=== PATIENT | female | born 1970 | race Caucasian/White ===

== ENCOUNTER 2024-01-31 12:22 | Outpatient (CLI) | payer BC, SELFPAY ==
--- OUTSIDE RECORDS SUMMARY | 2024-02-18 09:07 | XMS_ITS | Clinical Summary ---
Author Organization [facility] Address [place], [place] [address] Care Team Providers Care Regional Sales Leader Name Role Phone Heidi Paulino Unavailable Gabriella Kapadia MD Primary Care Provide r Allergies Active Allergy Reactions Criticality Noted Date Comments Cephalexin Rash,*Unknown 11/11/2012 Levofloxacin Other - Describe In Comment Field 11/11/2012 Achilles tendon pain Nitrofurantoin Rash 03/21/2013 Nitrofurantoin Monohyd/M-Cryst Rash 10/05/2023 Sulfamethoxazole-Trimetho prim Rash,*Unknown 01/03/2012 Medications Medication Sig Dispensed Refills Start Date End Date Status melatonin 5 mg tab Take 3 mg by mouth at bedtime. 3mg tablet- 1/4 to 1/2 tablet 0 12/17/2014 Active cholecalciferol (Vitamin D-3) 2,000 unit capsule Take 2,000 units by mouth. Every 3-4 days 0 11/25/2022 Active Prometrium 100 mg capsule take 1 capsule PO nightly 06/11/2023 Active sertraline (ZOLOFT) 50 mg tabletIndications:A nxiety state Take 1.5 Tablets (75 mg) by mouth every morning. 135 Tablet 3 06/22/2023 Active clonazePAM (KLONOPIN) 0.5 mg tabletIndications:I nsomnia, unspecified type Take 1/2 to 1 tablet at bedtime 90 Tablet 06/22/2023 Active Additional Information Patient taking differently: Take 1/4 to 1/2 tablet at bedtime as needed, Reported on 12/13/2023 DOCOSAHEXAENOIC ACID ORAL Take 500 mg by mouth two times daily. Fish oil- few times a week Active propranoloL (INDERAL) 10 mg tablet Take 10 mg by mouth. Active estradiol 0.025 mg/24 hr (CLIMARA) 0.025 mg/24 hr patch Apply 1 Patch on dry, clean, hairless skin once weekly. 08/03/2023 Active metoprolol succinate (TOPROL XL) 25 mg Sustained-Release tabletIndications:N SVT (nonsustained ventricular tachycardia) (HC),Palpitations,M itral valve insufficiency, unspecified etiology Take 0.5 Tablets (12.5 mg) by mouth two times daily. 90 Tablet 1 11/21/2023 Active Additional Information Patient taking differently:12.5 mg OralDAILY, Reported on 12/13/2023 Active Problems Problem Noted Date Diagnosed Date Colon polyp 10/24/2023 Overview: Colonoscopy 09/2023 SSA, repeat in 5 years Female cystocele 09/17/2014 Thyroid nodule 03/10/2014 Overview: 2.5 cm.and stable. Benign FNA 2011. Follow up ultrasound every 2-5 years. 10/2016. Nontoxic single thyroid nodule 03/10/2014 Overview: 2.5 cm.and stable. Benign FNA 2011. Follow up ultrasound every 2-5 years. 10/2016. Insomnia 04/15/2013 Gilbert's syndrome 01/12/2013 Gall bladder polyp 01/09/2013 Overview: 3mm and stable. No further follow up ultrasounds needed. 10/2016. Cholesterolosis gallbladder 01/09/2013 Overview: 3mm and stable. No further follow up ultrasounds needed. 10/2016. Family history of colon cancer 12/19/2012 Overview: Colonoscopy 12/2017 hyperplastic polyp, repeat in 5 years Colonoscopy 09/2023 SSA, repeat in 5 years Anxiety state, unspecified 12/19/2012 Generalized anxiety disorder 12/19/2012 Pap smear for cervical cancer screening Overview: 07/2021 NIL. Plan: Pap/HPV due 07/2024 Resolved Problems Problem Noted Date Diagnosed Date Resolved Date Insomnia 06/22/2015 06/29/2015 Insomnia 06/22/2015 06/22/2015 Irregular menses 09/17/2014 06/29/2015 Mitral regurgitation 12/19/2012 013 Elevated bilirubin 12/19/2012 3 Environmental allergies 11/26/201211/26 Family history of malignant neoplasm of gastrointestinal tract 06/28/2012 12/19/2012 Overview: Colonoscopy 06/2012 normal repeat in 5 years Underweight 05/07/2012 12/19/2012 Mastitis 01/03/2012 05/07/2012 Rash 01/03/2012 05/07/2012 Syncope 01/03/2012 05/07/2012 Encounters Date Type Department Care Team Description 01/03/2024 9:20 AM CDT Orders Only [facility] [address] [place] [address] Lab, Appv Lab 01/03/2024 Travel 12/13/2023 9:00 AM CDT Office Visit [facility] [address] [facility] [address] [place] [id number] Joseph Newberry MBBS Consult (Osteoporosis/ Referred by Ely Yang MD) 12/13/2023 Travel 12/06/2023 3:30 PM CDT Office Visit [facility] [address] [place] [address] Jf Scott, Ashwin Hearing Problem 12/06/2023 Travel from Last 3 Months Immunizations Name Administration Dates Next Due AMB Influenza, IIV3 (Age >=3 years) Preserve Free (Flu Clinic Only) 07/07/2016 AMB Influenza, IIV4 PF (=>6 mos Flulaval,Fluzone Fluarix)(Flu Clinic Only) 06/23/2020,07/03/2018 COVID-19 VACCINE NOVAVAX 202 -2023 FORMULA 06/09/2023 COVID-19 vaccine (Moderna 100mcg/0.5mL) PF, MDV 09/21/2020,08/24/2020 COVID-19 vaccine (Pfizer-Bio NTech 30mcg/0.3mL) 12YO+ BIVALENT PF, MDV 06/02/2022 COVID-19 vaccine (Pfizer-Bio NTech 30mcg/0.3mL) 12YO+ FRANK-SUCROSE PF, MDV 03/10/2022 Influenza A (H1N1), Inactiva angel (Age >=3 Years) 06/13/2019 Influenza Virus, Unspecified 06/16/1998 Influenza, IIV4 07/10/2023, 2,06/01/2021,2018,06/20/2017,06/21/2015,05/27/2014 Tdap 05/12/2021,12/02/2010 Tuberculin (PPD) 03/29/2016,02/13/2012, 2 Zoster (Shingrix-RZV, recombinant) 08/12/2021 Family History Medical History Relation Name Comments Good Health Brother Cancer-colon Father Diabetes Father Heart Disease Father [place] Hyperlipidemia Father Hypertension Father Psychiatric illness Father anxiety Cancer-prostate Maternal Grandfather 70s Diabetes Maternal Grandfather Cancer Mother melanoma Hypertension Mother Cancer-breast No Family History Cancer-ovarian No Family History Relation Name Status Comments Brother Alive Child 1 Alive Child 2 Alive Father Alive Maternal Grandfather Mother Alive Social History Tobacco Use Types Packs/Day Years Used Date Smoking Tobacco: Never Passive Smoke Exposure: Never Smokeless Tobacco: Never Tobacco Cessation:Counseling Given: Yes Alcohol Use Standard Drinks/Week Comments Yes 3 (1 standard drink = 0.6 oz pur e alcohol) 3x a week PHQ-2 Answer Date Recorded PHQ-2 TOTAL SCORE 1 06/22/2023 Social Connections Answer Date Recorded Frequency of Communication with Friends and Fami ly 0 10/05/2023 Financial Resource Strain Answer Date R ecorded Difficulty of Paying Living Expenses 3 10/05/2023 Difficulty of Paying Living Expenses Not on file 10/05/2023 Food Insecurity Answer Date Recorded Worried About Running Out of Food in the Last Ye ar 1 10/05/2023 Transportation Needs Answer Date Record ed Lack of Transportation (Medical) 1 10/05/2023 Housing Stability Answer Date Recorded Unable to Pay for Housing in the Last Year 1 10/05/2023 Sex and Gender Information Value Date Recorded Sex Assigned at Not on file Gender Identity Not on file Sexual Orientation Not on file Obstetrics History Para Term AB IAB SAB Ectopic Multiple Livin g Live Births 2 2 2 0 0 0 0 0 0 2 Date Outcome GA Total Labor Labor/2nd/3rd Weight Sex Type Anes PTL Ojnna A1 A5 Name Clin 2006 Term 40w0 d 3.74 kg (8 lb 4 oz) M Vag Zan 2010 Term 41w0 d 3.83 kg (8 lb 7 oz) M Vag Ramirez Last Filed Vital Signs Vital Sign Reading Time Taken Comments Blood Pressure 116/64 12/13/2023 9:07 AM CDT Pulse 72 12/13/2023 9:07 AM CDT Temperature 36.8 ??C (98.2 ??F) 08/31/2023 7:51 AM CS T Respiratory Rate 14 10/23/2023 3:07 PM SECURITY INSTALLATION SALES TECHNICIAN Oxygen Saturation 100% 10/23/2023 3:07 PM SECURITY INSTALLATION SALES TECHNICIAN Inhaled Oxygen Concentration - - Weight 64 kg (141 lb 1.6 oz) 12/13/2023 9:07 AM CDT Height 162.9 cm (5' 4.13) 12/13/2023 9:07 AM CD T Body Mass Index 24.12 12/13/2023 9:07 AM CDT Plan of Treatment Upcoming Encounters Date Type Department Care Team (Late st Contact Info) Description 03/06/2024 9:55 AM CDT Office Visit [facility] [address] [place] [address] Gabriella Parsons MD [address] [place] [address] 07/03/2024 10:30 AM SECURITY INSTALLATION SALES TECHNICIAN Office Visit [facility] [address] [place] [address] Chris Jurado MD [address] [facility] [address] [place], [place] [phone] 08/13/2024 10:00 AM SECURITY INSTALLATION SALES TECHNICIAN Office Visit [facility] [address] [place] [phone] Joseph Newberry, AARTI [address] [place] [address] Health Maintenance Due Date Last Done Comments Hepatitis C screening for age 18-79 1988 Zoster (shingles) series for age 50+ (2 of 2) 10/07/2021 08/12/2021 Influenza for age 50-64 04/27/2024 07/10/20, 06/22/2022, 06/01/2021, Additional history exists Depression screening for age 12+ 06/22/2024 06/22/2023, 08/12/2021, 01/22/2020, Additional history exists Mammogram for age 45-75 07/30/2024 07/30/20, 07/28/2022, 08/15/2021, Additional history exists Pap test for age 21-65 08/12/2024 , 11/09/2017, 06/29/2015, Additional history exists BMI (ht and wt on same day) for age 18+ 12/12/2024 12/13/2023, 06/22/2023, 05/24/2023, Additional history exists Lipids for age 45-75 11/02/2027 11/01/2022, 08/12/2021, 01/07/2015 Colonoscopy through age 75 10/23/202810/23, 10/23/2023, 12/28/2017, Additional history exists Tetanus booster 05/12/2031 05/12/2021, 12/02/2010 HIV for age 15-65 Completed 06/06/2019 Tdap Completed 05/12/2021, 12/02/2010 COVID-19 vaccine series Completed 06/09/20, 06/02/2022, 03/10/2022, Additional history exists Pneumococcal series for age 6-64 Aged Out No longer eligible based on patient's age to complete this topic Procedures Procedure Name Priority Date/Time Associated Diagnosis Comments C TELOPEPTIDE SERUM Routine 01/03/2024 9 :19 AM CDT Osteoporosis, unspecified osteoporosis type, unspecified pathological fracture presence PROPEPTIDE TYPE I COLLAGEN Routine 01/03/2024 9:19 AM CDT Osteoporosis, unspecified osteoporosis type, unspecified pathological fracture presence PTH,INTACT Routine 12/13/2023 9:54 AM CDT Osteoporosis, unspecified osteoporosis type, unspecified pathological fracture presence Hypercalcemia COLONOSCOPY 10/23/2023 2:18 PM SECURITY INSTALLATION SALES TECHNICIAN XR MAMMO JOSE ANGEL BILAT SCREEN Routine 07/30/2023 4:34 PM SECURITY INSTALLATION SALES TECHNICIAN Visit for screening mammogram LC LIPID PANEL AND CHOL/HDL RATIO Routine 11/01/2022 9:00 AM SECURITY INSTALLATION SALES TECHNICIAN Lipid screening DAIRY FARM WORKER THIN PREP PAP SCREEN IMAGED Routine 08/12/2021 12:00 PM SECURITY INSTALLATION SALES TECHNICIAN Screening for malignant neoplasm of cervix ANTI HIV 1/2 Routine 06/06/2019 12:45 PM CDT Exposure to body fluids by contaminated hypodermic needle stick from Last 3 Months or Most Recently Relevant to Health Maintenance Results * C TELOPEPTIDE SERUM (01/03/2024 9:19 AM CDT) C-TELOPEPTIDE, SERUM 419 pg/mL 01/07/2024 7:35 AM CDT [facility] ([facility]) Comment: Reference Range: Premenopausal Women: 34 - 635 Postmenopausal Women: 34 - 1037 Blood BLOOD SPECIMEN / Unknown Venipuncture / Unknown 01/03/2024 9:19 AM CDT 01/03/2024 9:19 AM CDT Narrative [facility] ([facility]) - 01/07/2024 7:35 AM CDT Performed at: ??01 - [facility] [employer] [address] [place] [address] ??[id number] Senior Software Architect: Wade Peña MD, Phone: ??[phone] [facility] Performing Organization Address [facility] Co de Phone Number [facility] ([facility]) [address] [place] [address], * PROPEPTIDE TYPE I COLLAGEN (01/03/2024 9:19 AM CDT) Propeptide Type I Collagen 60.5 ng/mL 01/07/2024 5:07 PM CDT [facility] ([facility]) Comment: ? Pre-menopausal ??females: ?13.9 - 89.1 ? Post-menopausal females: ?10.4 - 97.8 Blood BLOOD SPECIMEN / Unknown Venipuncture / Unknown 01/03/2024 9:19 AM CDT 01/03/2024 9:19 AM CDT Narrative [facility] ([facility]) - 01/07/2024 5:07 PM CDT Test(s) 035814-Ahxcekqgza Type I Collagen This test was developed and its performance characteristics determined by [facility]. It has not been cleared or approved by the Food and Drug Administration. Performed at: ??01 - [address] ??[id number] Senior Software Architect: Bria Jenkins MD, Phone: ??[phone] [facility] Performing Organization Address [facility]/ZIP Co de Phone Number [facility] ([facility]) [address] [place] [address] * PTH,INTACT (12/13/2023 9:54 AM CDT) CALCIUM 9.8 8.6 - 10.0 mg/dL 12/13/2023 4:34 PM CDT [facility] PTH,INTACT 50.4 15.0 - 69.0 pg/mL 12/13/2023 4:34 PM CDT [facility] Blood BLOOD SPECIMEN / Unknown Venipuncture / Unknown 12/13/2023 9:54 AM CDT 12/13/2023 9:54 AM CDT Joseph TAVERAS SEND OUTS [facility] [address] [place] [address], [place] * COLONOSCOPY (10/23/2023 2:18 PM SECURITY INSTALLATION SALES TECHNICIAN) 10/23/2023 2:18 PM SECURITY INSTALLATION SALES TECHNICIAN Narrative Transcriptions Jose R Pettit MD - 10/23/2023 2:55 PM CST Patient Name: Agnes France Procedure Date: 10/23/2023 Gender: Female Date of : 1970 Admit Type: Outpatient Procedure: Colonoscopy Proceduralist: Jose R Pettit MD , Debby Jaimes (Nurse), Daniela Subramanian (Nurse) Indications/Pre-Op Diagnosis: Screening in patient at increased risk:Family history of 1st-degree relative withcolorectal cancer before age 60 years, Lastcolonoscopy: December 2017 Medications: Fentanyl 150 micrograms IV, Midazolam 4 mgIV, The level of sedation administered wasmoderate Procedure Description: The patient had risks, benefits and alternatives explained to andgave informed consent. The patient had a stable cardiopulmonary status and judged an adequate candidate for conscious sedation. The endoscope [id number]-H190L [id number] was passed through the anus andadvanced to the cecum, identified by appendiceal orifice and ileocecal valve.The colonoscopy was performed without difficulty. The patient toleratedthe procedure well. The quality of the bowel preparation was good. The ileocecal valve, appendiceal orifice, and rectum were photographed. Complications: No immediate complications. Estimated Blood Loss & Specimen: Estimated blood loss: none. Specimen collected - Yes and sent to Laboratory Findings: The perianal and digital rectal examinations were normal. A 4 mm polyp was found in the proximal ascending colon. The polyp was sessile. The polyp was removed with a cold snare. Resection and retrieval were complete. A 4 mm polyp was found in the sigmoid colon. The polyp was sessile.The polyp was removed with a cold snare. Resection and retrieval were complete. The exam was otherwise without abnormality. Impressions/Post-Op Diagnosis: - One 4 mm polyp in the proximal ascending colon, removed with a cold snare. Resected and retrieved. - One 4 mm polyp in the sigmoid colon, removed with a cold snare. Resected and retrieved. - The examination was otherwise normal. Recommendation: - Patient has a contact number available for emergencies. The signsand symptoms of potential delayed complications were discussed with the patient. Return to normal activities tomorrow. Written discharge instructions were provided to the patient. - Resume previous diet. - Continue present medications. - Await pathology results. - Repeat colonoscopy in 5 years. Moderate Sedation: A time out was performed before the procedure. Moderate (conscious) sedation was administered by the endoscopy nurse and supervised bythe endoscopist. The following parameters were monitored: oxygensaturation, heart rate, blood pressure, EKG, CO2, respiratory rate, adequacy of pulmonary ventilation and reponse to care. Please refer to the patient's medical record flowsheets and nursing notes for moderate sedation details. Total physician intraservice time was 17 minutes. Jose R Pettit MD 10/23/2023 2:55:07 PM This report has been signed electronically. Note Initiated On: 10/23/2023 2:18 PM Procedure Code(s): --- Professional --- 68604, Colonoscopy, flexible; with removalof tumor(s), polyp(s), or other lesion(s) bysnare technique Diagnosis Code(s): --- Professional --- Z80.0, Family history of malignant neoplasmof digestive organs D12.2, Benign neoplasm of ascending colon D12.5, Benign neoplasm of sigmoid colon CPT copyright 2021 [employer]. All rights reserved. The codes documented in this report are preliminary and upon storm door maker reviewmay be revised to meet current compliance requirements. Scope In: 2:26:32 PM Scope Withdrawal Time 0 hours 9 minutes 52 seconds Scope Out: 2:43:34 PM Jose R Pettit MD PROCEDURE ORD * XR MAMMO JOSE ANGEL BILAT SCREEN (07/30/2023 4:34 PM SECURITY INSTALLATION SALES TECHNICIAN) Anatomical Region Laterality Modality BREASTS, Breast Left, Breast Right Bilateral Mammography Impressions 07/31/2023 4:03 PM SECURITY INSTALLATION SALES TECHNICIAN ??There is no radiographic evidence for malignancy. ??Recommend annual mammograms. MAMMOGRAM ASSESSMENT: ??ACR 1 Negative PATIENTS: You will also receive a letter with your examination results in an easy to read format. ??If you have questions about your results, please contact your referring provider. Narrative 07/31/2023 4:03 PM SECURITY INSTALLATION SALES TECHNICIAN For Patients: As a result of the Century Cures Act, medical imaging exams and procedure reports are released immediately into your electronic medical record. You may view this report before your referring provider. If you have questions, please contact your health care provider. XR MAMMO JOSE ANGEL BILAT SCREEN [[id number]] CLINICAL HISTORY: ??This is an asymptomatic 53 y.o. patient. INDICATION FOR EXAM: Mammogram Screening. TECHNIQUE: CC & MLO views were obtained. ??This study was evaluated with the assistance of Computer-Aided Detection. Breast Tomosynthesis was used in interpretation. COMPARISON FILM: Yes 07/28/22 [employer] [facility] 07/27/21 [place] [employer] FINDINGS: ??The breasts are heterogeneously dense, which may obscure small masses. There are no dominant masses, suspicious micro calcifications or areas of architectural distortion. Gabriella Parsons MD MAMMO * (ABNORMAL) LC LIPID PANEL AND CHOL/HDL RATIO (11/01/2022 9:[address] [facility]) Cholesterol, Total 212(H) 100 - 199 mg/dL 11/03/2022 10:10 AM [facility] ([facility]) Triglycerides 85 0 - 149 mg/dL 11/03/2022 10:10 AM [facility] ([facility]) HDL Cholesterol 74 >39 mg/dL 10:10 AM [facility] ([facility]) VLDL Cholesterol Thompson 15 5 - 40 mg/dL 11/03/2022 10:10 AM [facility] ([facility]) LDL Chol Calc ([facility]) 123(H) 0 - 99 mg/dL 11/03/2022 10:10 AM [facility] ([facility]) T. Chol/HDL Ratio 2.9 0.0 - 4.4 ratio 11/03/2022 10:10 AM [facility] ([facility]) Comment: ?T. Chol/HDL Ratio ?Men ??Women ?1/2 Avg.Risk ??3.4 ?3.3 ?Avg.Risk ??5.0 ?4.4 ? 2X Avg.Risk ??9.6 ?7.1 ? 3X Avg.Risk 23.4 ?? 11.0 Blood BLOOD SPECIMEN / Unknown Venipuncture / Unknown 11/01/2022 9:00 AM SECURITY INSTALLATION SALES TECHNICIAN 11/01/2022 9:01 AM SECURITY INSTALLATION SALES TECHNICIAN Narrative [facility] ([facility]) - 11/03/2022 10:10 AM SECURITY INSTALLATION SALES TECHNICIAN Performed at: ??01 - [facility] [address] [place], [place] ??[id number] Senior Software Architect: Gianni Marte MD, Phone: ??[phone] Gabriella Parsons MD SEND OUTS Performing Organization Address City/State/[facility] Co de Phone Number [facility] ([facility]) [address] [place] [address] * DAIRY FARM WORKER THIN PREP PAP SCREEN IMAGED (08/12/2021 12:00 PM SECURITY INSTALLATION SALES TECHNICIAN) Case Report Gynecologic Cytology Report ? Case: [id number] ? Authorizing Provider: ??Gabriella Parsons, ??Collected: ? 08/12/2021 1200 ? MD ? Ordering Location: ? [facility] ?? Received: ?08/12/2021 1238 ? Clinic ? First Screen: ?Kyler Torres ? Specimen: ?DAIRY [employer]ARM WORKER ThinPrep Vial Screening, Cervical ? 08/30/2021 3:41 PM SECURITY INSTALLATION SALES TECHNICIAN [facility] INTERPRETATION/ RESULT NEGATIVE FOR INTRAEPITHELIAL LESION OR MALIGNANCY (NIL) (none) 08/30/2021 3:41 PM SECURITY INSTALLATION SALES TECHNICIAN [facility] [employer] [facility]OR[facility]-C ENTRAL LABORATORY IMEN ADEQUACY Satisfactory for evaluation Endocervical component present 08/30/2021 3:41 PM SECURITY INSTALLATION SALES TECHNICIAN [facility] [employer]-C ENTRAL LABORATORY HPV REQUEST HPV if ASCUS 08/30/2021 3:41 PM SECURITY INSTALLATION SALES TECHNICIAN [facility] LABORATORY-C ENTRAL LABORATORY Date of LMP n/a 08/30/2021 3:41 PM SECURITY INSTALLATION SALES TECHNICIAN [facility] LABORATORY-C ENTRAL LABORATORY Last Pap Date 11/09/18 08/30/2021 3:41 PM SECURITY INSTALLATION SALES TECHNICIAN [facility] LABOR[facility]-C ENTRAL LABORATORY Last Pap Result NIL 3:41 PM SECURITY INSTALLATION SALES TECHNICIAN [facility] [employer] [facility]OR[facility]-C ENTRAL LABORATORY Abnormal Pap or [place] Bx in last 5 years No 08/30/2021 3:41 PM SECURITY INSTALLATION SALES TECHNICIAN [facility] EN[facility] LABORATORY Menstrual Status Postmenopausal 08/30/2021 3:41 PM SECURITY INSTALLATION SALES TECHNICIAN [facility] LAB[facility] [place] Bx Done Today No 08/30/2021 3:41 PM SECURITY INSTALLATION SALES TECHNICIAN [facility] Additional Information None given 08/30/2021 3:41 PM SECURITY INSTALLATION SALES TECHNICIAN [facility] Comment: Cytology is screened at [facility] - [address], [place] [address] and [facility] - [address], [place] [address] and [facility] - [address] [place] [address] Interpreted at [facility] - [address] [place] [address] Automated Review Successful 08/30/2021 3:41 PM SECURITY INSTALLATION SALES TECHNICIAN [facility] Comment:Specimen processed s uccessfully by automated anode crew supervisor device, ThinPrep Imaging System, [employer] Note The pap test is a screening technique, not a diagnostic procedure. It is used primarily to screen for squamous cancers and precursor lesions. Published studies have shown that it is subject to both false negative and false positive results. The pap test should not be used as the sole means to diagnose or exclude pre-malignant and malignant lesions. 08/30/2021 3:41 PM SECURITY INSTALLATION SALES TECHNICIAN [facility] EN[facility] LAB[facility]ORY Other (Cervical) Non-Blood / Unknown 08/12/2021 12:00 PM SECURITY INSTALLATION SALES TECHNICIAN 08/12/2021 12:38 PM SECURITY INSTALLATION SALES TECHNICIAN Gabriella Parsons MD PATHOLOGY/CYT OLOGY [facility] [address] [place] [address], [place] * ANTI HIV 1/2 (06/06/2019 12:45 PM CDT) HIV-1/HIV-2 ANTIBODY Non-Reacti ve Non-Reacti ve 06/06/2019 4:33 PM CDT [facility] TR[facility]ORAT[facility] Comment:HIV-1 p24 and HIV-1/ HIV-2 Ab not detected. Blood BLOOD SPECIMEN / Unknown Venipuncture / Unknown 06/06/2019 12:45 PM CDT 06/06/2019 12:49 PM CDT Gabriella Parsons MD SEND OUTS [facility]-CENTRAL LABORATORY [address] [place] [address], [place] from Last 3 Months or Most Recently Relevant to Health Maintenance Advance Directives * Full Code (Latest Code Status on File) Date Activated Date Inactivated Comments 01/03/2012 12:08 AM 01/03/2012 6:16 PM Care Teams Regional Sales Leader Relationship Specialty Start Date End Date Gabriella Parsons MD [address] [place] [address] PCP - General Family Practice 04/02/13 [facility] 06/28/12
--- OUTSIDE RECORDS SUMMARY | 2024-02-18 09:08 | XMS_ITS | Data Portability ---
Author Organization [facility], [id number] Address [address] [address] Assessment Encounter Date Assessment Date Assessment LastModified by Organization Details LastModified Time 06/11/2023 06/11/2023 I spent a total of 30 minutes providing care for this patient including: preparing to see the patient, obtaining a medical history, completing a medically appropriate physical exam, completing documentation of visit information and plans in the EMR, counseling the patient and/or caregiver regarding her diagnosis, treatment options and follow up plans, as well as any necessary communication of subsequent test results to the patient. [email or web address] Not available 06/13/2023 15:35:14 08/03/2023 08/03/2023 I spent a total of 20 minutes providing care for this patient including: preparing to see the patient, obtaining a medical history, completing a medically appropriate physical exam, completing documentation of visit information and plans in the EMR, counseling the patient and/or caregiver regarding her diagnosis, treatment options and follow up plans, as well as any necessary communication of subsequent test results to the patient. This service was provided using telemedicine including synchronous audio and/or video approved technology. The patient verbally Consents to telemedicine services, virtual check-ins and evisits. The patient confirms she is at home or private location Telemedicine consultation via Synchronous Audio Only Call. I spent a total of 20 minutes providing care for this patient including: preparing to see the patient, obtaining a medical history, completing a medically appropriate physical exam, completing documentation of visit information and plans in the EMR, counseling the patient and/or caregiver regarding her diagnosis, treatment options and follow up plans, as well as any necessary communication of subsequent test results to the patient, reviewing test results, Assessment and Plan for this visit include the following: [email or web address] Not available 08/06/2023 10:02:05 Plan of Treatment Reminders Order Date Submit Date Provider Last Modified By Organization Details Last Modified Time Details Appointments None recorded. Lab None recorded. Referral None recorded. Procedures None recorded. Surgeries None recorded. Imaging DEXA - Please call pt to schedule Dexa Bone Density 2022 023 [facility], [address], [place], [address], 14:33:27 Medication Orders Vivelle-Dot 0.025 mg/24 hr transdermal patch [address], [address], 15:26:49 Prometrium 100 mg capsule [address], [address], 3 11:28:57 Prometrium 100 mg capsule 2022 023 [facility] [address] [place] [address], [address], 3 15:26:13 estradiol 0.025 mg/24 hr weekly transdermal patch 2022 023 [facility] [address] [place] [address], [address], 3 09:59:47 Patient TargetsNo targets recorded. Patient InstructionsNo instructions recorded. Reason for Referral Endocrinology Referral for O steoporosis early onset osteoporosis Please call pt to see Dr. Newberry per request for early onset osteoporosis Referring Physician: Lacy Yang, TRIAGE REGISTER NURSE, Encounter Date: 08/13/2023 Results Created Date Observation Date Name Description Value Unit Range Abnormal Flag LastModifiedBy Organization Detail LastModifiedTime 07/05/20 23 07/03/2023 DEXA No observ ation record ed. [email or web address] [facility] [place] [address], [place], [address], 08/03/2023 15:09:16 Result Notes None recorded. Procedures Surgical History Date Name Laterality Status Provider Name and Address Organization Details Recorded Time 07/28/20 22 Date of Last Mammogram completed Lauren Randall null, [place] [facility] 06/11/2023 16:37:00 08/12/20 21 Date of Last Pap Smear completed Lauren Randall null, [place] [facility] 06/11/2023 16:36:38 12/29/19 18 Date of Last Colonoscopy completed Lauren Randall null, [place] [facility] 06/11/2023 16:37:14 extraction of wisdom tooth completed Lauren [place] null, [place] [facility] 06/11/2023 16:38:24 excision of fibroadenoma of breast completed Lauren [place] null, [place] [facility] 06/11/2023 16:38:44 Imaging Results Imaging Date Name Status LastModified by Organizatio n Details LastModified Time 07/03/2023 DEXA completed [email or web address] [facility] [place] [address], [place], [address], 08/03/2023 15:09:16 Procedure Notes None recorded. Medical Equipment None Reported. Allergies Allergen ID Allergen Name Allergen Category Reaction Reaction Severity Criticality Documentation Date Start Date Code Code System Note Provider Name and Address Organization Details Recorded Time [id number] Bactrim medicatio n Not available Not available Not available 06/11/2023 36552 9 RxNorm Lauren Randall null, [place] [facility] 3 16:34:42 884956 cephalexi n medicatio n Not available Not available Not available 06/11/2023 2231 RxNorm Lauren Randall null, [place] [facility] 16:34:59 [id number] Macrobid medicatio n Not available Not available Not available 06/11/2023 11160 1 RxNorm LaurenMAINSHA Mcguire - TRIAGE REGISTER NURSE 3 16:40:54 Medications Name Sig Start Date Stop Date Status Note LastModified by Organization Details LastModified Time buspirone 5 mg tablet TAKE 1 TABLET (5 MG) BY MOUTH TWO TIMES DAILY. active Not Available Not Available No t Available prednisone 10 mg tablet active Not Available Not Available Not Available clonazepam 0.5 mg tablet TAKE 1/2 TO 1 TABLET BY MOUTH AT BEDTIME active Not Available Not Available No t Available sertraline 100 mg tablet TAKE 1/2 TABLET (50MG) BY MOUTH EVERY MORNING (ALONG WITH 25MG TAB FOR TOTAL DOSE OF 75MG DAILY) active Not Available Not Available Not Available nadolol 20 mg tablet TAKE ONE TABLET (20 MG) BY MOUTH ONCE DAILY. active Not Available Not Available No t Available propranolol 10 mg tablet TAKE 1 TO 2 TABLETS BY MOUTH 30 MINUTES PRIOR TO STRESSFUL EVENT ONCE DAILY active Not Available Not Available No t Available estradiol 0.025 mg/24 hr weekly transdermal patch Apply 1 patch every week by transdermal route. active Not Available Not Available No t Available sertraline 25 mg tablet TAKE ONE TABLET (25MG) BY MOUTH EVERY MORNING (ALONG WITH (50MG) FOR TOTAL DOSE OF 75MG DAILY) active Not Available Not Available No t Available metoprolol succinate ER 25 mg tablet,exten ded release 24 hr TAKE ONE-HALF TABLET (12.5 MG) BY MOUTH TWO TIMES DAILY. active Not Available Not Available No t Available sertraline 50 mg tablet TAKE ONE (50MG)TABLE T BY MOUTH ALONG WITH ONE 25MG TABLET FOR A TOTAL DOSE OF (75 MG) EVERY MORNING. active Not Available Not Available No t Available progesterone micronized 100 mg capsule TAKE ONE CAPSULE BY MOUTH NIGHTLY active Not Available Not Available No t Available estradiol 0.025 mg/24 hr semiweekly transdermal patch APPLY 1 PATCH TWICE A WEEK BY TRANSDERMAL ROUTE. active Not Available Not Available No t Available peg 3350-electro lytes 236 gram-22.74 gram-6.74 gram-5.86 gram solution DRINK 2 LITERS THE DAY BEFORE THE PROCEDURE AND 2 LITERS 6 HOURS PRIOR TO PROCEDURE active Not Available Not Available No t Available Vitals Date Recorded Body weight Body mass index (BMI) Body height Systolic blood pressure Diastolic blood pressure Provider Name and Address Organization Details Last Updated DateTime 06/11/2023 34544.56 g 23.3 kg/m2 162.56 cm 118 mm[Hg] 74 mm[Hg] Lauren Randall [place] [facility] 16:41:34 Social History Question Answer Notes LastModified by Organizat ion Details LastModified Time What Is Your Relationship Status? [email or web address] Information not available 06/11/2023 Sex: Unknown Functional Status None recorded. Mental Status None recorded. Family History Nothing Reported. Medical History Condition Response Endocrinology- Osteoporosis Y Cardiology- Heart Murmur/Mitral Valve Pr olapse Y Gynecological History Statement/Question Response History of Fibroids Y Date of Last Pap Smear 08/12/2021 Date of Last Mammogram 07/28/2022 Date of Last Cholesterol Screening 11/01 Date of Last Colonoscopy 12/28/2017 Date of last bone density 07/03/2023 Obstetrics History GPAL:G 2 P 0 0 0 2 Type Value Living 2 Total 2 Immunizations Vaccine Type Date Status Provider Name and Address Organization Details Recorded Time zoster recombinant 08/12/2021 completed Lauren molina [place] [facility] 06/11/2023 16:34:23 COVID-19, mRNA, LNP-S, PF, 100 mcg/0.5mL dose or 50 mcg/0.25mL dose 09/21/2020 completed Lauren molina, [place] - [place] [facility]SE 06/11/2023 16:34:23 COVID-19, mRNA, LNP-S, PF, 100 mcg/0.5mL dose or 50 mcg/0.25mL dose 06/24/2021 completed Lauren molina [place] - [facility] 06/11/2023 16:34:23 COVID-19, mRNA, LNP-S, PF, 100 mcg/0.5mL dose or 50 mcg/0.25mL dose 08/24/2020 completed Lauren molina [place] - [facility] 06/11/2023 16:34:23 COVID-19, mRNA, LNP-S, PF, 30 mcg/0.3 mL dose, yaneth-sucrose 03/10/2022 completed Lauren molina [place] [facility] 06/11/2023 16:34:23 COVID-19, mRNA, LNP-S, bivalent, PF, 30 mcg/0.3 mL dose 06/02/2022 completed Lauren [place] null, [place] [facility] 06/11/2023 16:34:23 COVID-19, subunit, rS-nanoparticle, adjuvanted, PF, 5 mcg/0.5 mL 06/09/2023 completed Lauren [place] null, [place] [facility] 06/11/2023 16:34:23 influenza, unspecified formulation 06/21/2015 completed [place] null[place] [facility] 06/11/2023 16:34:23 influenza, unspecified formulation 07/07/2016 [facility] [place] [facility] 06/11/2023 16:34:23 Tdap 12/02/2010 completed [facility] [place] [facility] 06/11/2023 16:34:23 Tdap 05/12/2021 completed [place] null[place] [facility] 06/11/2023 16:34:23 Novel [id number] 06/13/2019 completed [place] null[place] [facility] 06/11/2023 16:34:23 Influenza, split virus, quadrivalent, PF 05/27/2014 completed [place] [facility] 06/11/2023 16:34:23 Influenza, split virus, quadrivalent, PF 06/01/2021 completed [place] [facility] 06/11/2023 16:34:23 Influenza, split virus, quadrivalent, PF 06/13/2019 completed [place] [facility] 06/11/2023 16:34:23 Influenza, split virus, quadrivalent, PF 06/20/2017 completed [place] [facility] 06/11/2023 16:34:23 Influenza, split virus, quadrivalent, PF 06/22/2022 completed [place] null[place] [facility] 06/11/2023 16:34:23 Influenza, split virus, quadrivalent, PF 06/23/2020 completed MANISHA Anglin [facility]ISTER NURSE 06/11/2023 16:34:23 Influenza, split virus, quadrivalent, PF 07/03/2018 completed AMNISHA Anglin [facility]ISTER NURSE 06/11/2023 16:34:23 Past Encounters Encounter ID Performer Location Encounter Start Date Encounter Closed Date Diagnosis/Indication Diagnosis SNOMED-CT Code [id number] LACY YANG MD [id number] [facility] [address] [place] [address] 06/11/2023 16:01:50 06/13/2023 17:03:48 Menopausal symptom [id number] Family his tory of osteoporosis [id number] LACY YANG MD [id number] [facility] [address] [place] [address],[facility] [address] [place] [address] 08/03/2023 13:48:33 08/09/2023 17:15:12 Menopausal symptom 89554150 Osteoporosis 25397949 Health Concerns Section Related Observation LastModified by Organization Detai ls LastModified Time None Recorded Concern Status LastModified by Organization Details LastModified Time None Recorded Advance Directives Directive None Recorded Payers Encounter Date Sequence Insurance Name Policy Number Policy Case Covered Member ID Case Member ID Guarantor Name 06/11/2023 1 [facility] [id number] Agnes [place] [id number] [place]nes [place] 08/03/2023 1 [facility] [id number] Agnes Nathan Turbes [id number] Agnes [place] Notes Date Note Type Note Provider Name and Address Organization Details Recorded Time 06/11/2023 text/html HPI Notes: 53yo postmenopausal patient here to discuss menopausal symptoms and trial of HRT. Reports early menopause in her 40's (around 8 years ago). Did have significant menopausal symptoms (hot flashes, etc) around 2019. Briefly trialed HRT but self-discontinued due to side effects. At the time that she went through menopause her provider generally advised against HRT. Interested in discussing r/b of trialing HRT again. Symptoms include occasional hot flashes, memory/brain fog, insomnia, concern for osteoporosis (family history). 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 Well-informed re:HRT, NAMs, indications for HRT as well as risks/benefits. She also reports prolapse, but not at a point that [place] would [place] [id number] [facility],[address], [place], [address], [facility] 06/13/2023 15:35:29 08/03/2023 text/html HPI Notes: 53yo postmenopausal patient via telehealth (audio only) to discuss menopausal symptoms, f/u after starting HRT. Also to discuss new diagnosis of osteoporosis. Symptoms significantly improved since starting HRT. Still having some sleep issues. Discussed DEXA results (also previously discussed over the phone). 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 Well-informed re:HRT, NAMs, indications for HRT as well as risks/[place]. [place] [address] [facility],[address], [place], [address], [facility] 08/06/2023 10:05:18 OBGyn Episode Ob Episode Information Episode Created Date Number of Fetuses Patient Bloodtype Patient rh Status Prepregnancy Weight lbs Domestic Partner Domestic Partner Phone Father Name Animal Physiologist Status 06/11/20 23 1 CLOSED Fetus Data First Name Last Name Admitted to NICU Weight (g) Sex Living Outcome Pediatric Complications Fetus ID Race Codes Race Delivery Type [id number] Mart Calculation Initial Mart Date Initial Exam Date Initial Exam Provider Initial Ultrasound Date Last Menstrual Period Date Ultra Sound Weeks Gestation 0 Eighteen To Twenty Week Mart Update Ultra Sound Date Fundal Height At Umbil Quickening Date Ultra Sound Latest Weeks Gestation Final Mart Confirmed By Final Mart Confirmed Date Final Mart Date Ultra Sound Latest Days Gestation 0 0 Menstrual History Last Menstrual Date Menses Monthly On Bcp Conception Prior Menses Frequency Hcg Plus Date Menarche Onset Age Delivery Information Delivery Date Delivery Type Labor Anesthesia Weeks Gestation Incision Type Labor Labor Length Hrs Delivered By Post Complications Tubal Sterilization Discharge Date Comments 7 Discharge Information Feeding Method Contraceptive Method Maternal HG B and HCT Levels Ob Episode Information Episode Created Date Number of Fetuses Patient Bloodtype Patient rh Status Prepregnancy Weight lbs Domestic Partner Domestic Partner Phone Father Name Animal Physiologist Status 06/11/20 23 1 CLOSED Fetus Data First Name Last Name Admitted to NICU Weight (g) Sex Living Outcome Pediatric Complications Fetus ID Race Codes Race Delivery Type [id number] Mart Calculation Initial Mart Date Initial Exam Date Initial Exam Provider Initial Ultrasound Date Last Menstrual Period Date Ultra Sound Weeks Gestation 0 Eighteen To Twenty Week Mart Update Ultra Sound Date Fundal Height At Umbil Quickening Date Ultra Sound Latest Weeks Gestation Final Mart Confirmed By Final Mart Confirmed Date Final Mart Date Ultra Sound Latest Days Gestation 0 0 Menstrual History Last Menstrual Date Menses Monthly On Bcp Conception Prior Menses Frequency Hcg Plus Date Menarche Onset Age Delivery Information Delivery Date Delivery Type Labor Anesthesia Weeks Gestation Incision Type Labor Labor Length Hrs Delivered By Post Complications Tubal Sterilization Discharge Date Comments 1 Discharge Information Feeding Method Contraceptive Method Maternal HG B and HCT Levels
--- OUTSIDE RECORDS SUMMARY | 2024-02-18 09:08 | XMS_ITS | Data Portability ---
Author Organization [place] [facility] [place] [facility] Address [address] [place] [address] Care Team Providers Care Laborer Sh[place] Name Role Phone CHEVY MUNGUIA MD Primary Care Provider CLARITA NAVAS Dentist Assessment Encounter Date Assessment Date Assessment LastModified by Organization Details LastModified Time 03/06/2023 03/06/2023 Today I spent a considerable amount of time discussing the patients past medical and personal history, as well as performing a physical examination all of which is documented in it's entirety in the electronic health record. I reviewed the pathophysiology of the disorder, potential contributing and risk factors as well as treatment options to address their complaints. I did not recommended advanced imaging. Today no imaging was obtained. Based on history and clinical presentation, I believe Kandy may likely have degenerative changes of the condyles. I believe an advanced imaging may be warranted at some point of time. We mutually agreed to defer imaging for the present time. From a treatment perspective I recommended a rehabilitative treatment approach. Treatment begins with home self management designed to rest the muscles of mastication and reduce inflammation in the temporomandibular joints. This includes heat and ice compresses, eating a soft food or pain-free diet, bilateral chewing identifying and decreasing daytime muscle tension and modification of their sleep position. Today I taught simple jaw exercises designed to improve the jaw mechanics and movement, improve range of mouth opening and improve TM joint fluid circulation to facilitate healing. This includes jaw rotation, simple stretch and relaxed breathing. This was both demonstrated and given in written format. Concurrently I taught proper posture. In addition I've recommended rehabilitation with physical therapy. Today I discussed other treatment options including use of muscle relaxant to help reduce muscle tightness. Today a prescription for Tizanidine 4 mg qhs, was discussed with the patient. The risks and benefits associated with the prescribed medication was discussed with the patient today. Medication options were declined. We also reviewed and touched on trigger point injections as a treatment option. I answered Kandy's questions about Onabotulinum toxin for chemodenervation. I believe Kandy will benefit from rehabilitative care and other treatment modalities may be used as needed. Beyond self management I believe that they would benefit from a mandibular intraoral appliance. No impressions were obtained today. Given Kandy's previous experience with intraoral appliances, we mutually agreed to defer an appliance at the present time. In the event of Kandy deciding to proceed with an intraoral appliance, Panthera nightguard is a reasonable option. A panoramic radiograph will be obtained per [facility] insurance requirements and a prior authorization initiated before proceeding with an intraoral appliance. I reviewed the written/published medical policy for [facility] and the treatment of temporomandibular disorders. The patient has seen a medical doctor and had other medical conditions ruled out as a cause of their temporomandibular disorders. They have previously trialed a maximum tolerated dose of drug therapy (eg., NSAID? s) with persistent symptoms of a temporomandibular disorder. Finally, they have had a dental evaluation where dental causes for their symptoms were ruled out. Panoramic imaging was deferred for the present time. Thus, the patient has completed all the necessary steps to meet the [facility] Medical Policy criteria for medical necessity for the treatment of their temporomandibular disorder. Prior authorization for treatment will be submitted. The goal of treatment is to restore function and reduce pain. I believe that by following these treatment recommendations there is a good prognosis for reduction of symptoms. History was obtained from the patient. The patient has 5+ diagnoses they would like to address. This case is moderate complexity because of multiple diagnoses with chronic symptoms. Risk of complications include progressive disease/symptoms. Today time spent may have included a review of past records, history taking, review of diagnoses, contributing factors, treatment plan, diagnostic testing, prognosis, expectations, risks and complications of treatment/no treatment, discussions with other providers and completing documentation was 60 minutes. Cost of care and insurance coverage was reviewed and discussed with the patient. Not available 03/08/2023 13:12:19 03/22/2023 03/22/2023 Patient presents to therapy with signs and symptoms consistent with the ICD 10 diagnoses noted below. Main findings include: chronic TMD with clicking and more recent change to pain on the L with increased deviation to the R during opening. Also history of neck pain, shoulder pain and headaches. Condition is evolving with moderate irritability and personal factors/comorbiditi es affecting the plan of care (see history section for list of factors). These findings limit the pt from participation in the following functional activities: opening wide and eating chewy foods, avoids extreme neck extension but doesn't limit her functionally from normal activity. Treatment plan to include reducing myalgia, increasing joint ROM, teaching self management strategies and strengthening to provide long-term symptom reduction. The patient was educated on the risks/benefits of physical therapy and the anatomy pertaining to their present condition. The physical therapy POC and goals were discussed with the patient and all present questions/concerns were addressed. Pt agrees to treatment plan. Rehabilitation potential is good. Treatment to include: therapeutic exercise, manual therapy, neuro muscular re education, therapeutic activities, self care, possible dry needling and modalities as needed. Frequency: will be 2>1/weeks for 6-8 weeks, tapering as able for a total of 6 visits over 2 months. [email or web address] Not available 03/22/2023 16:45:17 05/14/2023 05/14/2023 L joint movement is improved, switched from joint mobs to controlled rotation today and added MP TPR intraroally. Still very tender and painful in the MP. [email or web address] Not available 05/14/2023 18:10:40 Plan of Treatment Reminders Order Date Submit Date Provider Last Modified By Organization Details Last Modified Time Details Appointments None recorded. Lab None recorded. Referral physical therapist referral - Left TMJ closed lock without limited range, please address posture, hypermobili ty. 2022 023 Tameka Eagle PT, [address], [address], [place], [address], 13:20:50 Procedures None recorded. Surgeries None recorded. Imaging XR, orthopantog val 2022 023 [place], [address], [address], [place], [address], 13:20:49 Medication Orders None recorded. Patient Targets Encounter Date Encounter Id Patient Goals Patient Target Last Modified By Organization Details Last Modified Time care home goals (to be met in 6 weeks):*Patient will report improved score on JFWL by at least 10%, indicating clinically significant improvement in self-reported level of function to allow patient to safely achieve pre-onset level of function.*Patien t will demonstrate the ability to open jaw to 40mm IO without compensations, noticeable difficulty or pain greater than 2/10 to be allow for adequate jaw function for chewing food of all types and consistencies without compensation or difficulty. [email or web address] Not available 03/22/2023 16:45:22 Patient Instructions Encounter Date Encounter Id Patient Instructions Last Modified By Organization Details Last Modified Time 03/06/2023 [id number] Self Care for TMD Not availab le 03/08/2023 13:20:50 Three Jaw Exercises Not available 03/08/2023 13:20:50 oral appliance preparation* Not available 03/08/2023 13:20:50 trigger point injection information Not available 03/08/2023 13:20:49 03/22/2023 [id number] Total treatment time minutes today = 42 Next Visit Plan: give masseter TPR, how is MP going? Joint mob ok - any change in joint motion? Future - CR. Patient/Therapist Goals: reduce facial tension, L sided pain and headaches. Reduce L jaw deviation and calm down muscle tension Progress Note Date: 06/14 [email or web address] Not available 03/22/2023 16:42:34 05/14/2023 230347 Total treatment time minutes today = 35 Next Visit Plan: How is CR? Making any change with MP TPR? Open to dry needling that muscle? Check masseter just to make sure lower portion isn't contributing to sx. Patient/Therapist Goals: reduce facial tension, L sided pain (headaches improved and no longer a priority). Reduce L jaw deviation and calm down muscle tension Progress Note Date: 06/14 [email or web address] Not available 05/14/2023 18:12:34 Reason for Referral Physical Therapist Referral for Articular disc disorder of temporomandibular joint Right TMJ closed lock without limited range, please evaluate and address posture, possible hypermobi Left TMJ closed lock without limited range, please address posture, hypermobility. Referring Physician: Ghazal Toth, Pain Management, Encounter Date: 03/06/2023 Results Created Date Observation Date Name Description Value Unit Range Abnormal Flag LastModifiedBy Organization Detail LastModifiedTime 03/08/20 23 03/08/2023 oral appli ance prepa ratio n* Type of appliance mandib ular stabil izatio n applia nce Not Available [place] [id number], [place], [address], 03/08/2023 13:11:32 03/07/20 23 XR, ortho panto gram No observ ation record ed. [place] [address], [place], [address], 03/07/2023 14:22:48 Result Notes None recorded. 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 023 GHAZAL TOTH BDS,MS [address], [place], [address] , [place] [facility] 03/06/2023 16:32:41 Myofascial pain Active 023 GHAZAL TOTH BDS,MS [address], [place], [address] , [place] [facility] 03/08/2023 13:08:19 Bilateral temporomandibular joint pain Active 023 GHAZAL TOTH BDS,MS [address], [place], [address] , [place] [facility] 03/08/2023 13:09:10 Sleep related bruxism Active 023 GHAZAL CONNIE TOTH,MS [address], [place], [address] , [facility] 03/08/2023 13:09:16 Episodic tension-type headache Active 023 GHAZAL MAXWELL TOTHS,MS [address], [place], [address] , [facility] 03/08/2023 13:09:40 Problem Notes None recorded. Procedures Surgical History Date Name Laterality Status Provider Name and Address Organization Details Recorded Time 05/14/20 15231: Therapeutic Exercise completed Tameka Eagle DPT [address], [place], [address], [facility] 05/14/2023 18:11:47 05/14/20 23 10089: Neuromuscular Re-Education completed Tameka Eagle DPT [address], [place], [address], [facility] 05/14/2023 18:11:29 05/14/20 23 38690: Manual Therapy completed Tameka Eagle DPT [address], [place], [address], [facility] 05/14/2023 18:11:28 03/22/20 23 37138 - PT Eval Moderate Complexity completed Tameka Eagle DPT [address], [place], [address], [facility] 03/22/2023 09:16:58 03/22/20 23 04822: Self Care/Home Management Training completed Tameka Eagle DPT [address], [place], [address], [facility] 03/22/2023 16:37:23 03/22/20 23 10028: Therapeutic Exercise completed Tameka Eagle DPT [address], [place], [address], [place] [facility] 03/22/2023 16:37:14 03/22/20 23 87821: Manual Therapy completed Tameka Eagle DPT [address], [place], [address], [place] [facility] 03/22/2023 16:37:33 08/27/19 10 biopsy of breast completed Romelia Peterson [facility] 03/06/2023 14:49:25 Imaging Results Imaging Date Name Status LastModified by Organization Details LastModified Time 03/07/2023 XR, orthopantogram completed [place] [address], [place], [address], 03/07/2023 14:22:48 Procedure Notes None recorded. Medical Equipment None Reported. Allergies Allergen ID Allergen Name Allergen Category Reaction Reaction Severity Criticality Documentation Date Start Date Code Code System Note Provider Name and Address Organization Details Recorded Time 69008 Bactrim medicatio n Not available Not available Not available 03/06/2023 49813 9 RxNorm Romeliajustyn Peterson [facility] 14:43:13 96422 Macrobid medicatio n Not available Not available Not available 03/06/2023 24628 1 RxNorm Romeliajustyn Peterson [facility] 14:43:24 10667 cephalexi n medicatio n Not available Not available Not available 03/06/2023 2231 RxNorm Romelia Nicholas [facility] 14:44:15 Medications Name Sig Start Date Stop Date Status Note LastModified by Organization Details LastModified Time clonazepam 0.5 mg tablet TAKE 1/2 TO 1 TABLET BY MOUTH AT BEDTIME active Not Available Not Available No t Available sertraline 100 mg tablet TAKE 1/2 TABLET (50MG) BY MOUTH EVERY MORNING (ALONG WITH 25MG TAB FOR TOTAL DOSE OF 75MG DAILY) 03/06 completed Not Available Not Available Not Available permethrin 5 % topical cream APPLY TO ENTIRE BODY FROM THE NECK DOWN AND LEAVE ON FOR 8 HOURS. THEN RINSE AND REPEAT THIS IN ONE WEEK. 03/06 completed Not Available Not Available Not Available propranolol 10 mg tablet TAKE 1 TO 2 TABLETS BY MOUTH 30 MINUTES PRIOR TO STRESSFUL EVENT ONCE DAILY 03/06 completed Not Available Not Available Not Available sertraline 25 mg tablet TAKE ONE TABLET (25MG) BY MOUTH EVERY MORNING (ALONG WITH (50MG) FOR TOTAL DOSE OF 75MG DAILY) active Not Available Not Available No t Available metoprolol succinate ER 25 mg tablet,exte nded release 24 hr TAKE 1/2 TABLET (12.5 MG) BY MOUTH ONCE DAILY. active Not Available Not Available No t Available sertraline 50 mg tablet TAKE ONE (50MG)TAB LET BY MOUTH ALONG WITH ONE 25MG TABLET FOR A TOTAL DOSE OF (75 MG) EVERY MORNING. active Not Available Not Available No t Available Vitals Date Recorded Body height Body mass index (BMI) Body weight Heart rate Systolic blood pressure Diastolic blood pressure Provider Name and Address Organization Details Last Updated DateTime 3 162.56 cm 22.7 kg/m2 57381.1 9 g 64 /min 101 mm[Hg] 68 mm[Hg] Romelia Peterson [facility] 14:43:54 Social History Question Answer Notes LastModified by Organizat ion Details LastModified Time Tobacco Smoking Status Never Smoker Romelia Peterson [facility] 03/06/2023 14:48:50 Are You Currently Employed? Yes Information not available 03/06/2023 What Type Of Diet Are You Following? REGULAR Information not available 03/06/2023 What Is Your Occupation? [employer] Information not available 03/06/2023 How Many Children Do You Have? 2 Information not available 03/06/2023 What Is Your Relationship Status? Information not available 03/06/2023 Sex: Unknown Functional Status None recorded. Mental Status None recorded. Family History Relationship Description Onset Age of this Age Resolved Age Notes Father Arthritis Mother Arthritis Medical History Condition Response Allergies/Hayfever Y Migraines Y Anxiety Disorder Y Gynecological HistoryNo gynecological history recorded. Obstetrics History GPAL:G 0 P 0 0 0 0 Past Encounters Encounter ID Performer Location Encounter Start Date Encounter Closed Date Diagnosis/Indication Diagnosis SNOMED-CT Code [id number] GHAZAL MAX[place] TOTHS,MS [place] [address] [place] [id number] 03/06/2023 14:27:14 03/06/2023 16:20:38 Articular disc disorder of temporomandibular joint 43178432 Myofascial pain 25278489 9 Bilateral temporomandibular joint pain 887434908005451 05 Sleep related bruxism 27 1972365 Episodic t ension-type headache 964233076 [id number] Tameka Eagle, DERIK gutierrez [address] [place] [id number] 03/22/2023 14:45:19 03/22/2023 16:01:27 Articular disc disorder of temporomandibular joint 99428759 Bilateral temporomandibular joint pain 332381985031927 05 Episodic t ension-type headache 493172011 Myofascial pain 94193888 9 Sleep related bruxism 27 3772197 [id number] DERIK Valenzuela [address] [place] [id number] 05/14/2023 16:56:20 05/15/2023 07:14:44 Articular disc disorder of temporomandibular joint 14009222 Bilateral temporomandibular joint pain 982421103761362 05 Episodic t ension-type headache 163782791 Myofascial pain 15558966 9 Sleep related bruxism 27 1255663 Health Concerns Section Related Observation LastModified by Organization Detai ls LastModified Time None Recorded Concern Status LastModified by Organization Details LastModified Time None Recorded Advance Directives Directive None Recorded Payers Encounter Date Sequence Insurance Name Policy Number Policy Case Covered Member ID Case Member ID Guarantor Name 03/06/2023 1 LY [id number] Agnes [place] [id number] Agnes [place] 03/22/2023 1 LY [id number] Agnes [place] [id number] Agnes [place] 05/14/2023 1 [facility] [id number] Agnes [place] [id number] Agnes [place] Notes Date Note Type Note Provider Name and Address Organization Details Recorded Time 03/06/2023 text/html HPI Notes: gener al HPI for jaw, face, TMD pain Reported by patient. Onset: started 30+ year(s) ago; gradual Location: left; masseteric; preauricular; temporal Quality: dull; aching; sore Severity: mild; pain level 2-3/10; radiating to the neck Duration intermittent daily; lasts hours; not improving or worsening Symptom triggers: stress; anxiety; chews hard/crunchy/chewy foods; oral habits; poor sleep Aggravating Factors: anxiety; clenching the teeth; yawning; wide mouth opening; chewing Alleviating Factors: acetaminophen; massage; heat; ice Associated Symptoms: no tooth pain; no malocclusion; no tinnitus; jaw clicking left; jaw popping left; headaches; no numbness/tingling; no weakness Prior Treatment: soft diet; school crossing guard/oral appliance/splint; She believes the nightguards made her clench more Prior opinion primary care provider; dentist Symptoms status unchanged Patient presents today for evaluation of a possible temporomandibular disorder. These symptoms are chronic and began with no clear triggering events. Previous consultation include evaluation with his/her primary care provider. Symptoms are left sided only and aggravated by clenching and grinding of their teeth. The patient is aware of teeth clenching and grinding. Kandy was referred to our practice from her primary doctor. Kandy has a long history of jaw symptoms for many years - jaw joint noises, intermittent jaw pain, catching episodes of the left jaw joint which were self-limiting. She was a participant of the TMD Validation project at the [facility]. She had a CT, MRI and physical therapy as part of the study. She reports that her jaw symptoms are intermittent over the years, often self-limiting and may cause headaches when significant. She has had a series of mouth appliances fabricated by her dentist over the years. She has not been comfortable with using mouth appliances and reports that she clenches more with them. 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 She has been experiencing more jaw symptoms over the last 2-3 years and that this is the right time to treat it. Kandy presents today with the chief complaint of jaw pain, clicking and crunchy noises (L>R). Kandy reports left preauricular and masseter dull ache of 3-4/10 with jaw function and 1-2/10 at rest. Her symptoms were historically on the right side but recently the left side has been more noticeable. Kandy reports tension headaches in back of the neck (1x/week) lasting a few hours, takes Tylenol or Ibuprofen. She believes her headaches are connected to her jaw symptoms. She denies nausea, vomiting, light and sound sensitivity. She denies catching or locking episodes, bite changes or limitation in range of motion. Kandy denies trauma or injury to head, neck or face. She denies recent imaging of her TM joints. Kandy reports knee and left hip pain and possible arthritis. Kandy is aware of hypermobility in her joints. Beighton score today is 8. 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 Kandy reports non-restorative sleep (finding a comfortable position, shoulder and hip pain). She denies snoring or apneic episodes. She reports good energy levels during the day. She likes gardening. She will be restarting physical therapy for her shoulder starting next week. The patient has [facility] [place] medical insurance. They have symptoms of a temporomandibular disorder. The patient has been medically evaluated by a physician to rule out other medical reasons for their symptoms. The patient has seen a dentist prior to today? s visit to rule out dental reasons for their symptoms. A panoramic radiograph has not previously been obtained to evaluate for TMJ arthritic changes. Given that a panoramic image has low sensitivty and specificity for diagnosing pathology of the TMJ, a TMJ MRI would be needed to assess for an internal derangement and a CT would be necessary to assess for arthritic changes. Despite maximally tolerated drug therapy (eg. NSAIDs) the patient has persistent symptoms. GHAZAL TOTH, CONNIE,MS [address], [place], [address], [facility] 03/08/2023 13:20:53 03/22/2023 text/html HPI Notes: Serge nt presents today for PT evaluation regarding: L jaw popping, clicking and headaches. Historically R>L symptoms but more recently the L has been worse. L joint pain with chewing, with translation the L side pops out more. Symptoms began: 30 years ago Aggravated by: very chewy foods, wakes up with BEE in the AM at [facility] Improved by: nothing in particular Current symptoms are reported at -11/03. Pt was previously able to complete ADLs and IADLs I without limitation or pain. Functional limitations and participation restrictions currently include: *yawning *eating Personal factors and/or comorbidities affecting the plan of care include: *Headaches: yes -migraines. Tension headaches. *Medications: sertraline *Hypermobility *Medical/Surgical Hx: allergies, anxiety, mitral valve prolapse Denies: numbness, tingling, vision changes, swallowing difficulty. Previous Treatment: PT for shoulder, DDS. Thin system sales consultant at night. Patient Goals include: reduce facial tension, L sided pain and headaches Patient Reported Outcome JFLS-8 (out of 80): 03/22=11 Tameka Eagle DPT [address], [place], [address], [facility] 03/22/2023 16:45:33 05/14/2023 text/html HPI Notes: Kandy was last seen on 03/22 and returns today for followup. Pt reports working on her exercises some but not as much as she would like 2* being on vacation and would like to review them. Tameka Eagle DPT [address], [place], [address], [facility] 05/14/2023 18:12:59 OBGyn Episode No OBEpisode recorded.
== END 2024-01-31 12:23 | disposition home or self-care (01) ==
LOC: NFLDREF 02-18 09:04
PROVIDERS: PCP Family Medicine; Referring Provider Family Medicine; Visit Provider Physician Assistant
DX: R30.0 Dysuria (principal)
CPT/HCPCS: 87086

== ENCOUNTER 2024-10-20 08:45 | Outpatient (RCR) | payer BC, SELFPAY | END 2025-02-17 23:59 | disposition home or self-care (01) | PROVIDERS: PCP Family Medicine; Visit Provider Family Medicine | DX: M25.531 Pain in right wrist (principal); M25.532 Pain in left wrist; Z51.89 Encounter for other specified aftercare | CPT/HCPCS: 97033; 97035; 97110; 97140; 97165; 97530; 97535; X5282 ==